=== PATIENT | female | born 1965 | race Two or more races ===

== ENCOUNTER 2018-02-23 08:46 | Emergency (ER) | payer SELFPAY ==
[~2018-02-23] VITALS: Ht 157.5 cm; Wt 49.4 kg
[2018-02-23 08:56] VITALS: Ht 157.5 cm; Wt 49.4 kg
[2018-02-23 11:26] VITALS: BP 103/73
== END 2018-02-23 11:26 | disposition home or self-care (01) ==
LOC: ED 08:46
DX: S30.0XXA Contusion of lower back and pelvis, initial encounter (principal); M50.322 Other cervical disc degeneration at C5-C6 level; V49.9XXA Car occupant (driver) (passenger) injured in unspecified traffic accident, initial encounter; Y93.89 Activity, other specified; Y92.488 Other paved roadways as the place of occurrence of the external cause; Y99.8 Other external cause status